=== PATIENT | female | born 1990 | race African-American/Black ===

== ENCOUNTER 2020-08-07 12:35 | Observation (INO) | payer OTHER ==
[~2020-08-07] VITALS: Ht 160 cm; Wt 81.6 kg
[2020-08-07] MEDS ORDERED: PNV91TAB10 PO (13:20)
[2020-08-07] MEDS ORDERED: MORPHINE SULFATE 4 MG/ML SYR IVP SCH (14:00)
[2020-08-07] MEDS ORDERED: LACTATED RINGERS 1,000 ML IV SCH ×2 (14:00→14:50)
[2020-08-07] MEDS ORDERED: ACETAMINOPHEN 325 MG TAB PO SCH (14:00)
== END 2020-08-07 15:45 | disposition home or self-care (01) ==
LOC: MFCC 12:35
PROVIDERS: ADMIT Obstetrics & Gynecology; ATTEND Obstetrics & Gynecology
DX: O26.892 Other specified pregnancy related conditions, second trimester (principal); R10.30 Lower abdominal pain, unspecified; O99.342 Other mental disorders complicating pregnancy, second trimester; F41.9 Anxiety disorder, unspecified; O34.219 Maternal care for unspecified type scar from previous cesarean delivery; Z3A.24 24 weeks gestation of pregnancy
CPT/HCPCS: 59025; 81000; 96360; G0378; J7120